=== PATIENT | female | born 1965 | race American Indian/Alaskan Native ===

== ENCOUNTER 2016-08-02 14:12 | Emergency (ER) | payer SELFPAY ==
[2016-08-02 14:34] VITALS: BP 139/79
[2016-08-02 15:07] LABS: Basophils % (Auto) 0.6 % (0.0-1.8); Eosinophils % (Auto) 2.4 % (0.0-4.3); Hematocrit 38.9 % (30.3-42.9); Hemoglobin 12.3 gm/dl (10.1-14.3); Mean Corpuscular HGB Conc 32 % (30-34); Mean Corpuscular Hemoglobin 27 pg (28-32); Mean Corpuscular Volume 86 fl (79-97); Platelet Count 328 K/mm3 (140-440); Red Blood Count 4.51 M/mm3 (3.65-5.03); White Blood Count 6.1 K/mm3 (4.5-11.0)
[2016-08-02 15:14] LABS: Anion Gap 18 mmol/L; Blood Urea Nitrogen 12 mg/dL (7-17); Calcium 8.3 mg/dL (8.4-10.2); Carbon Dioxide 27 mmol/L (22-30); Chloride 99.2 mmol/L (98-107); Glucose 103 mg/dL (65-100); Potassium 3.7 mmol/L (3.6-5.0); Sodium 140 mmol/L (137-145)
--- NOTE | 2016-08-05 09:36 | ED Elopement Review ---
ED Pt Elopement review - Results review Lab results: Laboratory Tests 08/02/16 08/02/16 14:45 14:45 WBC 6.1 RBC 4.51 Hgb 12.3 Hct 38.9 MCV 86 MCH 27 L MCHC 32 RDW 15.0 Plt Count 328 Lymph % (Auto) 31.2 Mcculloch % (Auto) 12.0 H Eos % (Auto) 2.4 Baso % (Auto) 0.6 Lymph # 1.9 [place]ulloch # 0.7 Eos # 0.1 Baso # 0.0 Seg Neutrophils % 53.8 Seg Neutrophils # 3.3 Sodium 140 Potassium 3.7 Chloride 99.2 Carbon Dioxide 27 Anion Gap 18 BUN 12 Creatinine 0.6 L Estimated GFR > 60 BUN/Creatinine Ratio 20.00 Glucose 103 H Calcium 8.3 L Troponin T < 0.010 - Call Back decision Pt Call Back Decision: No action required
== END 2016-08-02 20:45 | disposition left against medical advice (07) ==
LOC: ED 14:12
DX: R07.9 Chest pain, unspecified (principal); R20.0 Anesthesia of skin; Z53.21 Procedure and treatment not carried out due to patient leaving prior to being seen by health care provider
CPT/HCPCS: 36415; 80048; 84484; 85025; 93005; 93010